=== PATIENT | male | born 1970 | race Caucasian/White ===

== ENCOUNTER → 2021-01-05 | Outpatient (CLI) | payer BC ==
[2021-01-05 10:50] LABS: HEMOGLOBIN 17.4 gm/dl (14.0-17.5); RED BLOOD COUNT 5.33 M/UL (4.20-5.50); WHITE BLOOD COUNT 7.5 K/UL (4.5-11.0)
[2021-01-05 11:11] LABS: BUN/CREATININE RATIO 16 (0-10)
[2021-01-06 09:12] LABS: HBSAG SCREEN Negative (Negative); HEP A AB, IGM Negative (Negative); HEP B CORE AB, IGM Negative (Negative); HEP C VIRUS AB <0.1 (0.0-0.9)
[2021-01-09 10:14] LABS: QUANTIFERON MITOGEN VALUE >10.00 IU/mL (.); QUANTIFERON NIL VALUE 0.07 IU/mL (.); QUANTIFERON TB1 AG VALUE 0.33 IU/mL (.); QUANTIFERON TB2 AG VALUE 0.08 IU/mL (.); QUANTIFERON-TB GOLD PLUS Negative (Negative)
== END ==
LOC: LAB 10:14
PROVIDERS: Nurse Practitioner Women's Health
DX: D89.9 Disorder involving the immune mechanism, unspecified (principal); L40.50 Arthropathic psoriasis, unspecified; R53.83 Other fatigue
CPT/HCPCS: 36415; 80053; 80074; 85025; 85652; 86140